=== PATIENT | male | born 1980 | race Caucasian/White ===

== ENCOUNTER 2017-05-04 17:03 | Emergency (ER) | payer BC, OTHER ==
[~2017-05-04] VITALS: Ht 165.1 cm; Wt 68.0 kg
[2017-05-04 17:06] VITALS: Ht 165.1 cm; Wt 68.0 kg
[2017-05-04 17:45] LABS: BASOPHIL # 0.1 10^3/ul (0.0-0.1); BASOPHILS % 0.7 % (0.0-2.0); EOSINOPHILS % 11.3 % (0.0-7.0); HEMOGLOBIN 15.6 g/dl (14.0-18.0); LYMPHOCYTES # 2.5 10^3/ul (0.8-2.9); LYMPHOCYTES % 28.4 % (15.0-51.0); MEAN CORPUSCULAR HEMOGLOBIN 29.7 pg (29.0-33.0); MEAN CORPUSCULAR HGB CONC 34.7 g/dl (32.0-37.0); MEAN CORPUSCULAR VOLUME 85.7 fl (82.0-101.0); MONOCYTE # 0.5 10^3/ul (0.3-0.9); MONOCYTES % 5.2 % (0.0-11.0); NEUTROPHIL # 4.7 10^3/ul (1.6-7.5); NEUTROPHILS % 54.3 % (39.0-77.0); PLATELET COUNT 311 10^3/UL (140-415); RED BLOOD COUNT 5.25 10^6/ul (4.70-6.10); RED CELL DISTRIBUTION WIDTH 12.3 % (11.5-14.5); WHITE BLOOD COUNT 8.6 10^3/ul (4.8-10.8)
[2017-05-04 17:50] LABS: ADD UMIC YES; UR ASCORBIC ACID NEGATIVE (NEGATIVE); UR BILIRUBIN (Dip) NEGATIVE (NEGATIVE); UR BLOOD (Dip) NEGATIVE (NEGATIVE); UR CLARITY CLEAR (CLEAR); UR COLOR YELLOW (YELLOW); UR GLUCOSE (Dip) NEGATIVE (NEGATIVE); UR KETONES (Dip) NEGATIVE (NEGATIVE); UR LEUKOCYTE ESTERASE (Dip) NEGATIVE Leu/ul (NEGATIVE); UR MUCUS FEW /HPF (NONE SEEN); UR NITRITE (Dip) NEGATIVE (NEGATIVE); UR RBC 3 /HPF (0-5); UR SPECIFIC GRAVITY (Dip) 1.021 (1.003-1.030); UR TOTAL PROTEIN (Dip) 1+ mg/dl (NEGATIVE); UR UROBILINOGEN (Dip) NEGATIVE (NEGATIVE)
[2017-05-04 18:08] LABS: ALANINE AMINOTRANSFERASE 38 IU/L (13-69); ALBUMIN 4.8 g/dl (3.3-4.9); ALBUMIN/GLOBULIN RATIO 1.45; ALKALINE PHOSPHATASE 72 IU/L (42-121); ANION GAP 20 (8-16); ASPARTATE AMINO TRANSFERASE 23 IU/L (15-46); BILIRUBIN,INDIRECT 0.8 mg/dl (0-1.1); BILIRUBIN,TOTAL 0.8 mg/dl (0.2-1.3); BLOOD UREA NITROGEN 15 mg/dl (7-20); CARBON DIOXIDE 29 mmol/L (21-31); CHLORIDE 99 mmol/L (97-110); CREATININE 0.93 mg/dl (0.61-1.24); GLUCOSE 91 mg/dl (70-220); POTASSIUM 4.2 mmol/L (3.5-5.1); SODIUM 144 mmol/L (135-144); TOTAL PROTEIN 8.1 g/dl (6.1-8.1)
[2017-05-04 18:10] LABS: ACETAMINOPHEN < 10.0 ug/ml (10.0-30.0); SALICYLATE < 1.0 mg/dl (5.0-30.0)
[2017-05-04 18:11] LABS: ETHANOL < 10.0 mg/dl
[2017-05-04 18:12] LABS: INR 1.01; PROTIME 13.3 Sec (12.2-14.2)
[2017-05-04 18:12] LABS: BARBITURATES Negative (NEGATIVE); BENZODIAZEPINES Negative (NEGATIVE); CANNABINOIDS Negative (NEGATIVE); COCAINE Negative (NEGATIVE); OPIATES Negative (NEGATIVE)
[2017-05-04 18:13] LABS: PARTIAL THROMBOPLASTIN TIME 32.5 Sec (25.0-35.0)
--- NOTE | 2017-05-04 18:57 | PSY ---
Date/Time of Note Date/Time of Note DATE: 05/04/17 TIME: 21:52 Psychiatric Subjective Eval Subjective Evaluation Patient location: emergency Chief Complaint: Patient ststes to battling depression x weeks need help History of present illness HPI: The patient is a 36 yo male with no formal psych hx, reports seveal weeks of very low mood, staying in room all day, low NRG, low appetite, low motivation. Roby SI at all but has no hope for future, but again denies any si.. No psychosis. No drug use, admits to 48 oz beer daily. Reports that she is staying iwth friends and one of his friends recommended that he go to the ER to see a doctor adn obtain advice. Pt does not want to be admitted. 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 MD advised pt to take antidepressants (pt declined, said he does not believe in them) but did agree to receive referral to psychiatry and therapy -pt could likely be discharged but would recommend obtaining parallel hx from the friend who brought pt to the ED. If not acute risk to self or other is reported, and pt not gravely disabled, could be discharged but must have referral to psychiatrist this week -if pt stays in ER more than a few hours will need very close alcohol withdrawal monitoring and daily po thiamine 100mg po, folate 1mg, mvi Allergies: Coded Allergies: No Known Allergy (Unverified , 05/04/17) Psychiatric Objective Eval Mental Status Examination: Laboratory Results Laboratory Tests Test 05/04/17 17:26 05/04/17 17:29 Urine Color YELLOW Urine Clarity CLEAR Urine pH 8.0 Urine Specific [place] 1.021 Urine Ketones NEGATIVEmg/dL Urine Nitrite NEGATIVEmg/dL Urine Bilirubin NEGATIVEmg/dL Urine Urobilinogen NEGATIVEmg/dL Urine Leukocyte Esterase NEGATIVELeu/ul Urine Microscopic RBC 3/HPF Urine Microscopic WBC 1/HPF Urine Mucus FEW/HPF Urine Hemoglobin NEGATIVEmg/dL Urine Glucose NEGATIVEmg/dL Urine Total Protein 1+mg/dl Sodium Level 144mmol/L Potassium Level 4.2mmol/L Chloride Level 99mmol/L Carbon Dioxide Level 29mmol/L Anion Gap 20 Blood Urea Nitrogen 15mg/dl Creatinine 0.93mg/dl Glucose Level 91mg/dl Calcium Level 10.0mg/dl Total Bilirubin 0.8mg/dl Direct Bilirubin 0.00mg/dl Indirect Bilirubin 0.8mg/dl Aspartate Amino Transf (AST/SGOT) 23IU/L Alanine Aminotransferase (ALT/SGPT) 38IU/L Alkaline Phosphatase 72IU/L Total Protein 8.1g/dl Albumin 4.8g/dl Globulin 3.30g/dl Albumin/Globulin Ratio 1.45 Salicylates Level < 1.0mg/dl Urine Opiates Screen Negative Acetaminophen Level < 10.0ug/ml Urine Barbiturates Negative Urine Amphetamines Screen Negative Urine Benzodiazepines Screen Negative Urine Cocaine Screen Negative Urine Cannabinoids Negative Ethyl Alcohol Level < 10.0mg/dl White Blood Count 8.610^3/ul Red Blood Count 5.2510^6/ul Hemoglobin 15.6g/dl Hematocrit 45.0% Mean Corpuscular Volume 85.7fl Mean Corpuscular Hemoglobin 29.7pg Mean Corpuscular Hemoglobin Concent 34.7g/dl Red Cell Distribution Width 12.3% Platelet Count 21619^3/UL Mean Platelet Volume 9.0fl Neutrophils % 54.3% Lymphocytes % 28.4% Monocytes % 5.2% Eosinophils % 11.3% Basophils % 0.7% Nucleated Red Blood Cells % 0.0/100WBC Neutrophils # 4.710^3/ul Lymphocytes # 2.510^3/ul Monocytes # 0.510^3/ul Eosinophils # 1.010^3/ul Basophils # 0.110^3/ul Nucleated Red Blood Cells # 0.010^3/ul Prothrombin Time 13.3Sec Prothrombin Time Ratio 1.0 INR International Normalized Ratio 1.01 Activated Partial Thromboplast Time 32.5Sec YOLA ELIZABETH May 04, 2017 18:57
--- NOTE | 2017-05-04 19:34 | ERD ---
ER Documentation Chief Complaint Date/Time DATE: 05/04/17 TIME: 19:30 Chief Complaint Patient ststes to battling depression x weeks need help HPI This is a 36-year-old male with no formal psychiatric history that presents to the emergency department complaining of a depressed mood for the past several weeks. The patient states he has no appetite and no energy. He wants to sleep all day has no motivation to do any activities. The patient however denies any suicidal or homicidal thoughts at this time. He denies any auditory tactile or visual hallucinations. He denies any illicit drug use. He states he has been consuming a total of 48 ounces of beer on a daily basis. He is currently staying with friends and indicated that 1 of his friends admitted he go to the ER to see a doctor to be further evaluated for his mood. He denies any past medical history. ROS All systems reviewed and are negative except as per history of present illness. Medications Home Meds No Active Prescriptions or Reported Meds Allergies Allergies: Coded Allergies: No Known Allergy (Unverified , 05/04/17) PMhx/Soc Medical and Surgical Hx: pt denies Medical Hx, pt denies Surgical Hx Hx Alcohol Use: Yes Hx Substance Use: No Hx Tobacco Use: No Smoking Status: Never smoker Physical Exam Vitals Vital Signs Date Time Temp Pulse Resp B/P Pulse Ox O2 Delivery O2 Flow Rate FiO2 05/04/17 17:06 97.2 69 20 126/81 99 Physical Exam Constitutional:Well-developed. Well-nourished. HEENT:Normocephalic. Atraumatic.Pupils were equal round reactive to light. Moist mucous membranes.No tonsillar exudates. Neck: No nuchal rigidity. No lymphadenopathy. No posterior cervical spine tenderness or step-offs. Respiratory: Not using accessory muscles of respiration.Lungs were clear to auscultation bilaterally. No rhonchi. No rales. No wheezing. Cardiovascular: Regular rate regular rhythm.No murmurs. No rubs were appreciated.S1, S2 normal. Distal pulses are palpable 2+ bilaterally. GI: Abdomen was soft. Nontender. Non Distended. No pulsatile abdominal masses or bruits. No rebound. No guarding. Bowel sounds were present and normal. Muscle skeletal: Full range of motion of both the upper and lower extremities bilaterally.Normal muscle tone.No assymetrical calf tenderness or swelling. Skin: No petechia, no purpura. No lesions on the palms or the soles of the feet. No maculopapular rash. NEURO: Patient was alert, awake, orientated x3.No facial droop. Gait observed and normal with no ataxia.Speech had regular rate and rhythm. No focal neurological deficits. Patient makes good eye contact. Denies any suicidal or homicidal thoughts or ideations. The patient does state he is depressed and has a restricted affect. He has no tangential thinking. Result Diagram: 05/04/17 1729 05/04/17 1726 Results 24 hrs Laboratory Tests Test 05/04/17 17:26 05/04/17 17:29 Urine Color YELLOW Urine Clarity CLEAR Urine pH 8.0 Urine Specific [place] 1.021 Urine Ketones NEGATIVEmg/dL Urine Nitrite NEGATIVEmg/dL Urine Bilirubin NEGATIVEmg/dL Urine Urobilinogen NEGATIVEmg/dL Urine Leukocyte Esterase NEGATIVELeu/ul Urine Microscopic RBC 3/HPF Urine Microscopic WBC 1/HPF Urine Mucus FEW/HPF Urine Hemoglobin NEGATIVEmg/dL Urine Glucose NEGATIVEmg/dL Urine Total Protein 1+mg/dl Sodium Level 144mmol/L Potassium Level 4.2mmol/L Chloride Level 99mmol/L Carbon Dioxide Level 29mmol/L Anion Gap 20 Blood Urea Nitrogen 15mg/dl Creatinine 0.93mg/dl Glucose Level 91mg/dl Calcium Level 10.0mg/dl Total Bilirubin 0.8mg/dl Direct Bilirubin 0.00mg/dl Indirect Bilirubin 0.8mg/dl Aspartate Amino Transf (AST/SGOT) 23IU/L Alanine Aminotransferase (ALT/SGPT) 38IU/L Alkaline Phosphatase 72IU/L Total Protein 8.1g/dl Albumin 4.8g/dl Globulin 3.30g/dl Albumin/Globulin Ratio 1.45 Salicylates Level < 1.0mg/dl Urine Opiates Screen Negative Acetaminophen Level < 10.0ug/ml Urine Barbiturates Negative Urine Amphetamines Screen Negative Urine Benzodiazepines Screen Negative Urine Cocaine Screen Negative Urine Cannabinoids Negative Ethyl Alcohol Level < 10.0mg/dl White Blood Count 8.610^3/ul Red Blood Count 5.2510^6/ul Hemoglobin 15.6g/dl Hematocrit 45.0% Mean Corpuscular Volume 85.7fl Mean Corpuscular Hemoglobin 29.7pg Mean Corpuscular Hemoglobin Concent 34.7g/dl Red Cell Distribution Width 12.3% Platelet Count 68560^3/UL Mean Platelet Volume 9.0fl Neutrophils % 54.3% Lymphocytes % 28.4% Monocytes % 5.2% Eosinophils % 11.3% Basophils % 0.7% Nucleated Red Blood Cells % 0.0/100WBC Neutrophils # 4.710^3/ul Lymphocytes # 2.510^3/ul Monocytes # 0.510^3/ul Eosinophils # 1.010^3/ul Basophils # 0.110^3/ul Nucleated Red Blood Cells # 0.010^3/ul Prothrombin Time 13.3Sec Prothrombin Time Ratio 1.0 INR International Normalized Ratio 1.01 Activated Partial Thromboplast Time 32.5Sec Procedures/MDM The patient presented to the emergency department with no active suicidal ideation but felt depressed. My differential diagnosis included but was not limited to major depressive disorder, normal despondency, bipolar disorder, schizophrenia, anxiety disorder, borderline personality disorder, antisocial personality disorder, organic mental disorder, bereavement or alcohol or drug abuse. Ancillary lab work was obtained including blood alcohol level, drug screen and serum toxicology panel. The patient was provided a safe environment while in the emergency department with appropriate supervision. The patient will be seen and evaluated by the tele-psychiatrist and he stated that the patient did not fit criteria for 5150. He had advised the patient take antidepressants but the patient declined and said he did not believe in them. He did agree to receive referral to psychiatry and therapy. This will be provided to the patient. He was given 100 mg of p.o. thiamine. There is no signs of alcohol withdrawal at this time and was given the finding to prevent alcohol withdrawal. The patient was discharged home in fair condition. They were instructed to return to the emergency department at any time if there was any worsening of their condition. The patient stated they would follow up with their PCP in the next 24-48 hours to initiate a suitable medication regimen under the care of their PCP as well as to allow their PCP to monitor any drug reactions. The patient was discharged home with prescriptions after they gave informed consent to the new medication. They were also fully informed by myself on the adverse effects and adverse drug interactions in order to provide adequate safeguards to prevent possible adverse reactions to medications. Departure Diagnosis: Primary Impression: Depression Depression Type: unspecified Qualified Code: F32.9 - Depression, unspecified depression type Condition: Fair MARIANELA,SHARON May 04, 2017 19:34
[2017-05-04 19:35] VITALS: BP 114/77; PULSE 82; RESP 20; TEMP 98.4
[2017-05-04] MEDS ORDERED: THIAMINE 100 MG TAB PO ONE (20:00)
== END 2017-05-04 19:35 | disposition home or self-care (01) ==
LOC: E/R 17:03
DX: F32.9 Major depressive disorder, single episode, unspecified (principal); R40.2252 Coma scale, best verbal response, oriented, at arrival to emergency department; R40.2142 Coma scale, eyes open, spontaneous, at arrival to emergency department; R40.2362 Coma scale, best motor response, obeys commands, at arrival to emergency department
CPT/HCPCS: 36415; 80053; 80306; 80307; 81001; 85025; 85610; 85730; 99283